=== PATIENT | male | born 1970 | race Caucasian/White ===

== ENCOUNTER 2018-11-01 20:02 | Emergency (ER) | payer SELFPAY ==
[2018-11-01] MEDS ORDERED: Lidocaine 2% 20 ml MDV ONE (20:18)
[2018-11-01] MEDS ORDERED: HYDROcodone/Acetaminophen 10/325 mg Tablet ONE (20:20)
[2018-11-01] MEDS ORDERED: Ibuprofen 600 MG TAB ONE (20:20)
[2018-11-01] MEDS ORDERED: Bupivacaine PF 0.5% 30 ML VIAL ONE (20:20)
[2018-11-01] MEDS ORDERED: HYDROcodone/Acetaminophen 5/325 mg Tablet ONE (20:29)
[2018-11-01] MEDS ORDERED: Ibuprofen 800 MG TAB ONE (20:29)
--- NOTE | 2018-11-01 21:00 | RAD ---
LEFT THUMB RADIOGRAPH THREE VIEWS: 11/01/18 PROVIDED CLINICAL HISTORY: Injury. FINDINGS: Markedly comminuted, mildly displaced fracture involving the terminal tuft of the thumb distal phalan x. There is also some fracture extension to involve the more proximal aspects of the distal phalanx w ithout definite intra-articular extension. IMPRESSION: Markedly comminuted thumb distal phalangeal fracture. POS: [id number]
== END 2018-11-01 21:39 | disposition home or self-care (01) ==
LOC: MADERS 20:02
DX: S62.522A Displaced fracture of distal phalanx of left thumb, initial encounter for closed fracture (principal); L03.012 Cellulitis of left finger; G43.909 Migraine, unspecified, not intractable, without status migrainosus; F17.210 Nicotine dependence, cigarettes, uncomplicated; W22.8XXA Striking against or struck by other objects, initial encounter
CPT/HCPCS: J2001; S0020

== ENCOUNTER 2018-11-25 03:03 | Emergency (ER) | payer SELFPAY ==
[2018-11-25] MEDS ORDERED: HYDROmorphone 0.5 MG/0.5 ML SYRINGE ONE (03:38)
[2018-11-25 04:03] LABS: Prothrombin Time 13.1 SEC (12.0-14.7)
[2018-11-25 04:10] LABS: #Basophils 0.1 thou/uL (0.0-0.2); #Eosinphils 0.7 thou/uL (0.0-0.7); #Lymphocytes 3.3 thou/uL (1.20-3.40); #Monocytes 0.6 thou/uL (0.11-0.59); %Basophils 1.2 % (0.0-1.0); %Eosinophils 9.4 % (0.0-10.0); %Lymphocytes 42.4 % (21.0-51.0); %Monocytes 8.2 % (0.0-10.0); %Neutrophils 38.9 % (42.0-75.0); Hemoglobin 12.9 g/dL (14.0-18.0); Mean Corpuscular HGB CONC 32.8 g/dL (32.0-36.0); Mean Corpuscular Hemoglobin 30.9 pg (27.0-31.0); Mean Corpuscular Volume 94.1 fL (78.0-98.0); Mean Platelet Volume 7.2 fL (7.4-10.4); Platelet Count 260 thou/uL (130-400); RBC Distribution Width 11.3 % (11.5-14.5); Red Blood Cell (RBC) Count 4.17 mill/uL (4.70-6.10); White Blood Cell (WBC) Count 7.8 thou/uL (4.8-10.8)
[2018-11-25 04:14] LABS: ALT (SGPT) 13 U/L (8-55); AST (SGOT) 16 U/L (5-34); Albumin 4.3 g/dL (3.5-5.0); Alkaline Phosphatase 70 U/L (40-150); Anion Gap 14 mmol/L (10-20); Bilirubin, Total 0.2 mg/dL (0.2-1.2); Calc. Creatinine Clearance 0 mL/min (70-130); Calcium 9.9 mg/dL (7.8-10.44); Chloride 105 mmol/L (98-107); Estimated GFR-MDRD 78; Glucose 126 mg/dL (70-105); Potassium 3.6 mmol/L (3.5-5.1); Sodium 142 mmol/L (136-145)
[2018-11-25 04:22] LABS: Carbon Dioxide 27 mmol/L (22-29); Globulin 2.7 g/dL (2.4-3.5)
[2018-11-25 04:59] LABS: BUN (Urea Nitrogen) 25 mg/dL (8.9-20.6)
[2018-11-25] MEDS ORDERED: Ketorolac Tromethamine 30 MG/ML VIAL ONE (05:17)
--- NOTE | 2018-11-25 07:11 | CT ---
CT ABDOMEN AND PELVIS WITHOUT CONTRAST: Date: 11/25/18 INDICATION: Abdominal pain. FINDINGS: There are a few punctate calcifications of the right kidney. There is mild to moderate right hydroure teronephrosis as a result of a right UVJ calculus which measures approximately 4 mm. No left side uro lithiasis. There are splenic granulomatous calcifications. No consolidation or effusion at the imaged lung bases. There is punctate subpleural nodularity at the left lung base. The visualized osseous st ructures are intact. The evaluation is otherwise limited on the basis of noncontrast technique. IMPRESSION: 1. Mild to moderate right-sided hydroureteronephrosis as a result of an approximately 4 mm right UVJ calculus. 2. Punctate right nephrolithiasis. POS: [email or web address]
== END 2018-11-25 05:34 | disposition home or self-care (01) ==
LOC: MADERS 03:03
DX: N13.2 Hydronephrosis with renal and ureteral calculous obstruction (principal); F17.210 Nicotine dependence, cigarettes, uncomplicated; G43.909 Migraine, unspecified, not intractable, without status migrainosus
CPT/HCPCS: 36415; 74176; 80053; 83605; 85025; 85610; 96374; 96375; J1170; J1885

== ENCOUNTER 2023-06-09 13:25 | Emergency (ER) | payer SELFPAY, OTHER ==
[2023-06-09] MEDS ORDERED: Aspirin Chewable 81 MG TAB ONE (15:06)
== END 2023-06-09 15:22 ==
LOC: MADERS 13:25
DX: R23.0 Cyanosis (principal); I10 Essential (primary) hypertension; F17.210 Nicotine dependence, cigarettes, uncomplicated